=== PATIENT | female | born 1980 ===

== ENCOUNTER → 2021-08-06 | Outpatient (CLI) | payer MEDICARE, OTHER ==
[~2021-08-06] MED LIST: ABX; ACET500; ALBIPROI INH; ALBU90OI INH; ARIP20; ARIP20 PO; ATEN25 PO; AZIT250 PO; AZIT500 PO; BENAML10/5; CEPH250SUA PO; CEPH500 PO; CIPR500 PO; CLIN300 PO; CLOT1TC TOP; CODACE30 PO; CODACEE120 PO; CODGUAEL PO; DOXY100 PO; EFFEXOR; ERYT500 PO; GLUCOPHAGE; GUAPHELA PO; HYDACE10 PO; HYDACE10B PO; HYDACE5 PO; HYDACE7.5 PO; HYDCOR10; HYDGUAL120 PO; HYDPAM25; HYDPAM25 PO; HYDPAM50; HYDPAM50 PO; IBUP800 PO; LEVFLO250 PO; LEVFLO500 PO; LITH300C; LITH300CA; LITH450ER; LITHIUM; MEPE50; METF500; METF500C; NAPR500 PO; NITR100CA PO; OXYACE5T PO; PHENA200 PO; POLY500 PO; PRED20 PO; PROACE100 PO; PROM25 PO; QUET200; QUET25; RISP.5; RISP3; RXHYDACE PO; RXHYDGUAS PO; RXNAPNA550 PO; RXPHEN200 PO; RXSULTRIDS; RXSULTRIDS PO; RXTRAM50 PO; SULTRIDS; SULTRIDS PO; SULTRISS; TRAM50 PO; TRAZ100; TRAZODONE; UNKOWN ABX; VENL75; VENL75ER; [UNRECOGNIZED DRUG - REMARK]; [UNRECOGNIZED DRUG - REMARK]; [UNRECOGNIZED DRUG - REMARK]
== END | disposition home or self-care (01) ==
LOC: LAB SHORT 16:00 → LAB 16:00
DX: L08.9 Local infection of the skin and subcutaneous tissue, unspecified (principal); L30.1 Dyshidrosis [pompholyx]; L81.8 Other specified disorders of pigmentation; R21 Rash and other nonspecific skin eruption; Z72.0 Tobacco use
CPT/HCPCS: 87070; 87077; 87147; 87186; 87205